=== PATIENT | female | born 1990 ===

== ENCOUNTER 2025-03-07 22:40 | Emergency (ER) | payer OTHER, SELFPAY ==
[2025-03-07 22:52] VITALS: BP 114/73; PULSE 71; RESP 16; TEMP 37; O2SAT 98; BMI 26.5
--- NOTE | 2025-03-07 22:59 | CRLHL7_ITS ---
For Patients: As a result of the Century Cures Act, medical imaging exams and procedure reports are released immediately into your electronic medical record. You may view this report before your referring provider. If you have questions, please contact your health care provider. Indication: Vaginal bleeding in early Technique: Transvaginal pelvic ultrasound with evaluation of and maternal anatomy. Grayscale and color Doppler imaging utilized. Comparison: None Findings: Single intrauterine gestation noted. No yolk sac or pole is visualized. Gestational sac measures 6.6 mm corresponding to EGA 5 weeks 3 days. Probable perigestational hemorrhage measures 35 x 25 x 7 mm. Right ovarian fibroid. Probable corpus luteum in the right ovary. Impression: Single intrauterine gestation noted. No visualized yolk sac or pole, though this may be due to early dates and sizes. There is a 35 millimeter perigestational hemorrhage visualized. Recommend trending beta hCG with repeat examination and/or obstetrics consult as clinically warranted. Dictated by Leon Dobbins MD @ 03/07/2025 11:46:29 PM (Electronically Signed)
--- NOTE | 2025-03-07 23:03 | ED_ITS ---
HPI - General Date Seen: 03/07/25 Chief complaint: Urogenital Problems, Female Stated complaint: 6wks , vaginal bleeding Time Seen by Provider: 03/07/25 22:49 Source: patient Mode of arrival: ambulatory Limitations: no limitations History of Present Illness HPI Narrative: Patient is a 34-year-old female presenting to the emergency department for vaginal bleeding. She is A1 with miscarriage back in August and a possible no other miscarriage 3 months ago. She is currently 6 weeks . She is having some mild bleeding but states with a previous miscarriage she also only has small amount of bleeding. She did pass a blood clot. Is having some left pelvic pain. She states it did not fill her pad. Denies fevers, chills, dysuria, chest pain, shortness of breath, headache, vision changes, lightheadedness, dizziness, abdominal pain. No other concerns noted at this time. Related Data Allergies Allergy/AdvReac Type Severity Reaction Status Date / Time No Known Drug Allergies Allergy Verified 03/07/25 22:58 Review of Systems Status of ROS: Reports: 10 or more systems reviewed and unremarkable except as noted in History and below Exam Narrative: Exam Narrative: Const: Well-nourished, Well-developed, in mild distress Eyes: PERRL, no conjunctival injection, and symmetrical lids HENT: Atraumatic external nose and ears. Moist mucous membranes. Neck: Symmetric, trachea midline, No thyromegaly. CVS: RRR, No murmurs or gallops. Peripheral pulses 2+ and equal in all extremities RESP: Unlabored respiratory effort. Clear to auscultation bilaterally. GI: Nontender/Nondistended, No rebound or guarding. : Left pelvic tenderness MSK:Extremities w/o deformity, Normal Active ROM Skin: Warm, Dry. No rashes or lesions. Neuro: Normal Muscle tone, No focal neurological deficits. Psych: Awake, Alert, & Oriented x3. Appropriate mood and affect. Const: Vital Signs, click to edit/add: Vital Signs - 24 hr 03/07/25 22:52 Temperature 98.6 F Pulse Rate [Right Pulse Oximeter] 71 Respiratory Rate 16 Blood Pressure [Ri ght Upper Arm] 114/73 Pulse Oximetry 98 Oxygen Delivery Me thod Room Air Course Vital Signs Vital signs: Initial Vital Signs Temperature 98.6 F 03/07/25 22:52 Temperature Source Temporal Artery Scan 03/07/25 22:52 Pulse Rate 71 03/07/25 22:52 Pulse Rhythm Regular 03/07/25 22:52 Pulse Strength 3+ Normal 03/07/25 22:52 Respiratory Rate 16 03/07/25 22:52 Blood Pressure 114/73 03/07/25 22:52 Blood Pressure Mean 86 03/07/25 22:52 Blood Pressure Position Sitting 03/07/25 22:52 Pulse Oximetry 98 03/07/25 22:52 Oxygen Delivery Method Room Air 03/07/25 22:52 Vital Signs Temperature 98.6 F 03/07/25 22:52 Pulse Rate 71 03/07/25 22:52 Respiratory Rate 16 03/07/25 22:52 Blood Pressure 114/73 03/07/25 22:52 Pulse Oximetry 98 03/07/25 22:52 Oxygen Delivery Method Room Air 03/07/25 22:52 Temperature 98.6 F 03/07/25 22:52 Pulse Rate 71 03/07/25 22:52 Respiratory Rate 16 03/07/25 22:52 Blood Pressure 114/73 03/07/25 22:52 Pulse Oximetry 98 03/07/25 22:52 Oxygen Delivery Method Room Air 03/07/25 22:52 MDM - OB/Uterine Contractions MDM Narrative Medical decision making narrative: Patient is a 34-year-old female presenting for mild left pelvic pain and vaginal bleeding. She has not had ultrasound yet and we will need to do an ultrasound to check for ectopic . Will also order a CBC, BMP, beta-hCG level. Ultrasound does show a single intrauterine gestation. There is a 35 mm perigestational hemorrhage visualized. Is recommended to trend hCG with repeat examination and follow-up with OB Lab Data Labs: Lab Results 03/07/25 Range/Units 23:30 Urine Color Yellow (Yellow) Urine Appearance Clear (Clear) Urine pH 5.5 (5.0-8.5) Ur Specific [place] >= 1.030 (1.000-1.030) Urine Protein Negative (Negative) Urine Glucose (UA) Negative (Negative) Urine Ketones 2+ A (Negative) Urine Blood 3+ A (Negative) Urine Nitrite Negative (Negative) Urine Bilirubin Negative (Negative) Urine Urobilinogen 0.2 (0.2-1.0) Ur Leukocyte Esterase Negative (Negative) Imaging Data Transvaginal US: Attestation: I have reviewed the pertinent imaging results. Radiologist's impression: Single intrauterine gestation noted. No visualized yolk sac or pole, though this may be due to early dates and sizes. There is a 35 millimeter perigestational hemorrhage visualized. Recommend trending beta hCG with repeat examination and/or obstetrics consult as clinically warranted. Dictated by Leon Dobbins MD @ 03/07/2025 11:46:29 PM Discharge Plan Discharge Clinical Impression: Vaginal bleeding in patient at less than 20 weeks gestation Patient Disposition: Home, Self-Care Condition: Stable Instructions: Subchorionic Hemorrhage (ED) Additional Instructions: Ultrasound does show an into your chin but there is also a hemorrhage seen. Is recommend you follow-up with OB. Recommend calling them in the morning. Return to emergency department for new or worsening symptoms. Stand Alone Forms: [facility] Info Instructions
[2025-03-07 23:35] LABS: Appearance Urine Clear (Clear)
[2025-03-07 23:57] LABS: Hematocrit 37.9 % (33.0-51.0); Hemoglobin* 13.0 gm/dL (12.0-16.0); Immature Granulocytes Abs Auto 0.01 K/uL (0.00-0.30); Immature Granulocytes Pct Auto 0.1 %; Lymphocytes Absolute Auto 2.92 K/uL (0.90-2.90); Mean Corpuscular HGB Conc 34 gm/dL (32-36); Mean Corpuscular Hemoglobin 30 pg (26-34); Mean Corpuscular Volume 87 fL (80-100); RDW Coefficient of Variation % 11.1 % (11.5-15.5); Red Blood Count 4.35 m/uL (4.00-5.20); White Blood Count* 9.14 K/uL (4.50-11.00)
[2025-03-08 00:03] LABS: Chloride* 105 mmol/L (96-114)
[2025-03-08 00:04] LABS: Potassium* 3.8 mmol/L (3.6-5.1); Sodium* 136 mmol/L (135-149)
[2025-03-08 00:06] LABS: Blood Urea Nitrogen* 15 mg/dL (5-24); Creatinine* 0.7 mg/dL (0.5-1.5); Est. Creatinine Clearance* 89.56; Estimated Glomerular Filt Rate 116 ml/min
[2025-03-08 00:07] LABS: Anion Gap 7 mEq/L (7-15); Calcium* 9.5 mg/dL (8.4-10.6); Carbon Dioxide* 24 mmol/L (20-32); Glucose* 101 mg/dL (60-115)
[2025-03-08 00:10] LABS: Slide Review Reflex No
[2025-03-08 00:27] LABS: HCG Quantitative* 1872.00 mIU/mL
== END 2025-03-08 00:24 | disposition home or self-care (01) ==
LOC: ED 23:55
PROVIDERS: Emergency Provider Student in an Organized Health Care Education/Training Program
DX: O20.9 Hemorrhage in early pregnancy, unspecified (principal); Z3A.01 Less than 8 weeks gestation of pregnancy
CPT/HCPCS: 36415; 76817; 80048; 81001; 84702; 85025; 86850; 86900; 86901; 99284

== ENCOUNTER 2025-03-15 14:35 | Emergency (ER) | payer OTHER, SELFPAY ==
[2025-03-15 14:38] VITALS: BP 107/58; PULSE 78; RESP 18; TEMP 36.9; O2SAT 97; BMI 26.0
--- NOTE | 2025-03-15 14:50 | ED.GENADULT ---
HPI - General Adult General Chief complaint: Vaginal Bleeding Stated complaint: Miscarriage Time Seen by Provider: 03/15/25 14:39 History of Present Illness HPI narrative: Patient presents to the emergency department complaining of vaginal bleeding and cramping. Patient had an ultrasound confirmed and was told to be about 7 weeks . Patient yesterday started passing clots and soaking pads. Patient today it has slowed. Patient presents asking for confirmation of miscarriage. 34-year-old woman presenting to the emergency department with concern of vaginal bleeding. Began spotting with wiping earlier this week and did intensify. Seems to have settled now this morning. Still having some lower abdominal discomfort. No fever. Did have an ultrasound done on 03/07 here in this department with some vaginal bleeding at that time noting some discordant dating without visualized yolk sac or pole. There was a 35 mm. Gestational hemorrhage as well. This morning did have some blood looks to be tissue of some sort fished out of the toilet. She is G3 with 2 miscarriages. No genetic testing has been done at this point. Here with suspecting miscarriage. Related Data Home Medications ?Medication ?Instructions ?Recorded ?Confirmed metronidazole 500 mg tablet 500 mg PO BID 03/15/25 03/15/25 progesterone micronized 200 mg PO 03/15/25 capsule Allergies Allergy/AdvReac Type Severity Reaction Status Date / Time No Known Drug Allergies Allergy Verified 03/15/25 14:48 Review of Systems Status of ROS: Reports: 6 or more systems reviewed and unremarkable except as noted in History and below [facility] Social History Smoking Status: Never smoker Do you use any of these nicotine containing products: None How often do you have a drink containing alcohol: never AUDIT-C Alcohol total score: 0 Non-prescribed substance use: denies use Exam Narrative: Exam Narrative: Pleasant. Appears downcast. Quiet. Breathing easily. Heart in regular rate and rhythm. Trace systolic murmur. Lungs appear clear. Abdomen is soft and tenderness in the suprapubic area to the left adnexal. Apparently this left side discomfort is not uncommon. She is well-perfused peripherally. Const: Vital Signs, click to edit/add: Vital Signs - 24 hr 03/15/25 14:38 03/15/25 16:17 Temperature 98.5 F 98.2 F Pulse Rate [Right Pulse Oximeter] 78 68 Respiratory Rate 18 18 Blood Pressure [Ri ght Upper Arm] 107/58 L 107/71 Pulse Oximetry 97 99 Oxygen Delivery Me thod Room Air Room Air Documenting provider has reviewed patient's vital signs: yes Course Vital Signs Vital signs: Initial Vital Signs Temperature 98.5 F 03/15/25 14:38 Temperature Source Temporal Artery Scan 03/15/25 14:38 Pulse Rate 78 03/15/25 14:38 Pulse Rhythm Regular 03/15/25 14:38 Pulse Strength 3+ Normal 03/15/25 14:38 Respiratory Rate 18 03/15/25 14:38 Blood Pressure 107/58 L 03/15/25 14:38 Blood Pressure Mean 74 03/15/25 14:38 Blood Pressure Position Sitting 03/15/25 14:38 Pulse Oximetry 97 03/15/25 14:38 Oxygen Delivery Method Room Air 03/15/25 14:38 Vital Signs Temperature 98.5 F 03/15/25 14:38 Pulse Rate 78 03/15/25 14:38 Respiratory Rate 18 03/15/25 14:38 Blood Pressure 107/58 L 03/15/25 14:38 Pulse Oximetry 97 03/15/25 14:38 Oxygen Delivery Method Room Air 03/15/25 14:38 Temperature 98.2 F 03/15/25 16:17 Pulse Rate 68 03/15/25 16:17 Respiratory Rate 18 03/15/25 16:17 Blood Pressure 107/71 03/15/25 16:17 Pulse Oximetry 99 03/15/25 16:17 Oxygen Delivery Method Room Air 03/15/25 16:17 Medications Administered Medications: Discontinued Medications Generic Name Dose Route Start Last Admin Trade Name Freq PRN Reason Stop Dose Admin Ibuprofen 600 mg 03/15/25 16:34 03/15/25 16:40 Ibuprofen 200 Mg Tablet PO 03/15/25 16:35 600 mg ONCE ONE Administration Medical Decision Making MDM Narrative Medical decision making narrative: Will monitor for vital stability. Does appear to be describing a miscarriage. Has already had an ultrasound verified intrauterine ; not ectopic. Will collect labs for HCG, blood type confirmation and hemoglobin at least as a baseline though I doubt particularly anemic at this point. [employer] noting empty uterus and known fibroid Radiology over-read below INDICATION: Bleeding in the 1st Trimester. Suspected Miscarriage. TECHNIQUE: Ultrasound OB pelvis transvaginal. Real-time bell-scale imaging of the pelvis was performed. COMPARISON: Ob ultrasound dated 03/07/2025. FINDINGS: The previously evident intrauterine gestational sac is no longer visualized. Endometrium is thickened and measures 13 mm in thickness. No signs of hemorrhage. Redemonstrated right posterior uterine body nodular hypodense focus, compatible with a fibroid, which measures 1.9 x 0.9 x 0.9 cm. The right ovary is of normal size. The left ovary is not visualized. There are no suspicious fluid collections noted in the cul-de-sac. IMPRESSION: The previously evident intrauterine gestational sac is no longer visualized, compatible with a miscarriage. Dictated by Hardy Erwin MD @ 03/15/2025 4:10:53 PM Blood type is O positive. No need for RhoGAM equivalent. Hemoglobin reassuring. HCG level inconsistent with anticipated dating Discussed case/management of expelled tissue with OB on-call in anticipation of holiday weekend. Tissue obtained has already been placed in fridge. Uncertain if this would be useful or not at this point for genetic analysis but considering this is 3rd miscarriage, would be indicated if possible. Stable over time of observation in the emergency department. See patient discharge plan for further discussion Recommendations would be to save the tissue that you have at home in your fridge for now. I would message, even today, to [facility](sp?) to see what they would like you to do at this point. Otherwise can take ibuprofen or acetaminophen for pain. Return for uncontrolled pain, development of fever, bleeding such that you are soaking 1 overnight pad an hour for 2 consecutive hours. best wishes going forward Like your mom said, you are blood type A positive Medical Records Medical records reviewed: Yes I reviewed the patient's medical records Lab Data Lab results reviewed: Yes I reviewed the patient's lab results Labs: Lab Results 03/15/25 03/15/25 Range/Units 15:15 16:24 Hgb 13.8 (12.0-16.0) gm/dL HCG, Quant 38.45 mIU/mL Blood Type A Positive Discharge Plan Discharge Clinical Impression: Complete miscarriage Patient Disposition: Home w/ Parent or Adult Condition: Stable Additional Instructions: Recommendations would be to save the tissue that you have at home in your fridge for now. I would message, even today, to [facility](sp?) to see what they would like you to do at this point. Otherwise can take ibuprofen or acetaminophen for pain. Return for uncontrolled pain, development of fever, bleeding such that you are soaking 1 overnight pad an hour for 2 consecutive hours. best wishes going forward Like your mom said, you are blood type A positive Prescriptions: No Action metronidazole 500 mg tablet 500 mg PO BID progesterone micronized 200 mg capsule PO Follow Up/Referrals: Provider,Not a Local [Primary Care Provider, Family Practice] Stand Alone Forms: [employer] Info Instructions
--- NOTE | 2025-03-15 15:08 | CRLHL7_ITS ---
For Patients: As a result of the Century Cures Act, medical imaging exams and procedure reports are released immediately into your electronic medical record. You may view this report before your referring provider. If you have questions, please contact your health care provider. INDICATION: Bleeding in the 1st Trimester. Suspected Miscarriage. TECHNIQUE: Ultrasound OB pelvis transvaginal. Real-time bell-scale imaging of the pelvis was performed. COMPARISON: Ob ultrasound dated 03/07/2025. FINDINGS: The previously evident intrauterine gestational sac is no longer visualized. Endometrium is thickened and measures 13 mm in thickness. No signs of hemorrhage. Redemonstrated right posterior uterine body nodular hypodense focus, compatible with a fibroid, which measures 1.9 x 0.9 x 0.9 cm. The right ovary is of normal size. The left ovary is not visualized. There are no suspicious fluid collections noted in the cul-de-sac. IMPRESSION: The previously evident intrauterine gestational sac is no longer visualized, compatible with a miscarriage. Dictated by Hardy Erwin MD @ 03/15/2025 4:10:53 PM (Electronically Signed)
[2025-03-15 15:33] LABS: Hemoglobin* 13.8 gm/dL (12.0-16.0)
[2025-03-15 16:14] LABS: HCG Quantitative* 38.45 mIU/mL
[2025-03-15 16:17] VITALS: BP 107/71; PULSE 68; RESP 18; TEMP 36.8; O2SAT 99
[2025-03-15] MEDS: IBUPROFEN 200 MG TABLET 600 MG PO (16:40)
== END 2025-03-15 17:42 | disposition home or self-care (01) ==
PROVIDERS: Emergency Provider Family Medicine
DX: O03.9 Complete or unspecified spontaneous abortion without complication (principal)
CPT/HCPCS: 36415; 76817; 84702; 85018; 86900; 86901; 99284; A9270